=== PATIENT | female | born 1975 | race Caucasian/White ===

== ENCOUNTER → 2016-07-23 | Outpatient (REF) | payer OTHER ==
[~2016-07-23] MED LIST: /ONDA4TA OR; CIPR500T4 OR; FLAG500T OR; No Historical Meds; VICO5TAB OR
== END ==
LOC: M LAB REF 09:04
PROVIDERS: ATTEND Physician Assistant Medical
DX: J02.9 Acute pharyngitis, unspecified (principal)

== ENCOUNTER 2018-10-08 09:57 | Day surgery (SDC) | payer OTHER ==
[~2018-10-08] VITALS: Ht 170.2 cm; Wt 112.0 kg
[~2018-10-08 09:57] MED LIST changes: -/ONDA4TA OR; +LIDOCAINE 2% INJ 100 MG/5 ML SDV (FOR ANES.) As Ordered ONE; +MIDAZOLAM INJ 2 MG/2 ML VIAL (J2250) As Ordered ONE; +ONDA-1 OR; +ONDANSETRON 4MG/2ML VIAL (J2405) As Ordered ONE; +PROPOFOL 200 MG/20 ML VIAL As Ordered ONE; +dexameTHASONE 4 MG/ML 1ML VIAL (J1100) As Ordered ONE; +fentaNYL 100 MCG/2 ML INJECTION (J3010) As Ordered ONE
[2018-10-08] MEDS ORDERED: LR 1,000 ML IV SCH (11:00)
[2018-10-08] MEDS ORDERED: BUPIVACAINE HCL 0.25% 10 ML VIAL As Ordered ONE (14:01)
[2018-10-08] MEDS ORDERED: LIDOCAINE W/EPINEPHRINE 1% 20ML VIAL As Ordered ONE (14:01)
[2018-10-08] MEDS ORDERED: LIDOCAINE 1% SDV INJ 30 ML VIAL As Ordered ONE (14:01)
[2018-10-08] MEDS ORDERED: BUPIVACAINE HCL 0.25% 30 ML VIAL As Ordered ONE (14:20)
[2018-10-08] MEDS ORDERED: PROPOFOL 200 MG/20 ML VIAL As Ordered ONE (14:42)
[2018-10-08] MEDS ORDERED: NORC1TAB7 PO (15:22)
[2018-10-08 16:15] VITALS: BP 118/66
--- NOTE | 2018-10-20 04:57 | ROOPDOC ---
[facility] Report Of Operation Report of Operation DATE OF PROCEDURE: 10/08/18 PREPROCEDURE DIAGNOSES: Left flank lipoma. POSTPROCEDURE DIAGNOSES: Left flank lipoma. PROCEDURE: Excision of lipoma at the left flank (3 x 3 cm). SURGEON: Charles Warren MD ANESTHESIA: Monitored anesthesia care with IV sedation plus placement of local anesthesia using 1% lidocaine mixed with 1/4% Marcaine. ESTIMATED BLOOD LOSS: Approximately 5 mL. COMPLICATIONS: None. REMARKS: Roughly a 3 x 3 cm well encapsulated lobulated fat tissue was removed PROCEDURE NOTE: 42-year-old female with a long-standing lipoma given her some localized discomfort at the area is brought in today for excision of the lipoma. DESCRIPTION OF PROCEDURE: Patient was brought to the operating room and placed on the procedure table she was positioned right lateral decubitus position with a wedge pillow under back to support her, depression points well padded. SCD boots were placed for the rhythm compression for DVT prophylaxis. This is a clean surgery and no antibiotics were given. She was provided with IV sedation and given oxygen via facemask and monitored throughout the whole procedure. The area around the left flank lipoma was prepped and draped in usual sterile fashion.We paused for a surgical timeout using both pre-incision safety checklist to verify correct patient, procedure site and additional clinical information prior to beginning the procedure The lipoma can be seen and palpated its within her tattoo. I chose an area in the middle of the soft tissue nodularity close to the lines of her tattoo and created a transverse skin incision with a 15 blade scalpel. This was slowly deepened through to the superficial subcutaneous tissue until the lipoma was encountered. The lipoma was then circumferentially dissected with both blunt and sharp dissection getting around the lipoma circumferentially and along its posterior attachments. This is well encapsulated and freed from surrounding adipose tissue and likewise along the lumbodorsal fascia. After freeing this up circumferentially as able to extract this hole. The cavity was inspected for bleeding or any remnants of the lipoma. Once satisfied the incision was then closed in layers using 3-0 Vicryl at the subcutaneous space and at the dermis. A running suture of 4-0 Monocryl was placed a particularly to close the skin. Steri-Strips and gauze dressings covered with Tegaderm was then used to cover the incision. Patient tolerated the procedure well and she was returned to the stretcher and brought to the recovery room stable after she woke up. CHARLES WARREN MD October 20, 2018 04:57
== END 2018-10-08 16:22 | disposition home or self-care (01) ==
LOC: M SDC 09:57
PROVIDERS: ATTEND Surgery
DX: D17.1 Benign lipomatous neoplasm of skin and subcutaneous tissue of trunk (principal); K21.9 Gastro-esophageal reflux disease without esophagitis; R06.83 Snoring; E66.9 Obesity, unspecified; Z68.39 Body mass index [BMI] 39.0-39.9, adult; Z91.09 Other allergy status, other than to drugs and biological substances; Z98.51 Tubal ligation status; Z72.0 Tobacco use
CPT/HCPCS: 21931; 88304; J1100; J2250; J2405; J3010

== ENCOUNTER 2020-08-07 13:22 | Emergency (ER) | payer OTHER ==
[~2020-08-07] VITALS: Ht 167.6 cm; Wt 120.5 kg
[~2020-08-07 13:22] MED LIST changes: -LIDOCAINE 2% INJ 100 MG/5 ML SDV (FOR ANES.) As Ordered ONE; -MIDAZOLAM INJ 2 MG/2 ML VIAL (J2250) As Ordered ONE; +NORC1TAB7 PO; -ONDANSETRON 4MG/2ML VIAL (J2405) As Ordered ONE; -PROPOFOL 200 MG/20 ML VIAL As Ordered ONE; -dexameTHASONE 4 MG/ML 1ML VIAL (J1100) As Ordered ONE; -fentaNYL 100 MCG/2 ML INJECTION (J3010) As Ordered ONE
[2020-08-07] MEDS ORDERED: FLUT1INH3 (14:00)
[2020-08-07] MEDS ORDERED: GI COCKTAIL 50ML BTL(HYOSCYAMINE/MAALOX/LIDOCAINE VISCOUS)(1:3:1) PO ONE (14:00)
[2020-08-07 14:05] LABS: BASO # 0.1 10^3/uL (0.0-0.2); BASO % 0.4 % (0.0-1.0); EOS # 0.1 10^3/uL (0.0-0.5); EOS % 0.8 % (0.0-3.0); HEMATOCRIT 46.9 % (36.0-47.0); LYMPH # 3.3 10^3/uL (1.5-5.0); LYMPH % 23.5 % (24.0-44.0); MEAN CORPUSCULAR HEMOGLOBIN 30.2 pg (27.0-33.0); MEAN CORPUSCULAR HGB CONC 34.1 g/dl (32.0-36.5); MEAN CORPUSCULAR VOLUME 88.5 fl (80.0-96.0); MONO # 0.6 10^3/uL (0.0-0.8); MONO % 4.2 % (2.0-8.0); NEUTROPHILS # 9.8 10^3/uL (1.5-8.5); NEUTROPHILS % 70.7 % (36.0-66.0); PLATELET COUNT, AUTOMATED 361 10^3/uL (150-450); WHITE BLOOD COUNT 13.8 10^3/uL (4.0-10.0)
--- NOTE | 2020-08-07 14:17 | REP ---
INDICATION: CHEST PAIN COMPARISON: 11/06/2013 TECHNIQUE: Portable AP view of the chest FINDINGS: The mediastinum and cardiac silhouette are stable and within normal limits for portable technique. The lung hernandez are clear without acute consolidation, effusion, or pneumothorax. Skeletal structures are intact. IMPRESSION: No acute cardiopulmonary process appreciated. <Electronically signed by Evert Bob > 08/07/20 [id number]
[2020-08-07 15:41] LABS: CK-MB VALUE MASS < 1.0 NG/ML (<3.6); CPK CREATINE PHOSPHOKINASE 110 U/L (26-192); INR 0.92; MB/CK RELATIVE INDEX 0.91 (< OR =4); PARTIAL THROMBOPLASTIN TIME 33.7 SECONDS (24.2-38.5); PROTHROMBIN TIME 12.6 SECONDS (12.5-14.3); TROPONIN I < 0.02 NG/ML (< 0.10)
[2020-08-07 16:10] LABS: ALBUMIN 3.8 GM/DL (3.2-5.2); ALT/SGPT 26 U/L (12-78); BILIRUBIN,DIRECT 0.2 MG/DL (0.0-0.2); BILIRUBIN,TOTAL 0.6 MG/DL (0.2-1.0); BLOOD UREA NITROGEN 9 MG/DL (7-18); CALCIUM LEVEL 9.2 MG/DL (8.5-10.1); CARBON DIOXIDE LEVEL 25 MEQ/L (21-32); CHLORIDE LEVEL 105 MEQ/L (98-107); CREATININE FOR GFR 0.64 MG/DL (0.55-1.30); GLOMERULAR FILTRATION RATE > 60.0 (>58); GLUCOSE, FASTING 98 MG/DL (70-100); LIPASE 96 U/L (73-393); POTASSIUM SERUM 3.9 MEQ/L (3.5-5.1); SODIUM LEVEL 137 MEQ/L (136-145); TOTAL PROTEIN 7.1 GM/DL (6.4-8.2)
[2020-08-07 16:54] LABS: CK-MB VALUE MASS < 1.0 NG/ML (<3.6); CPK CREATINE PHOSPHOKINASE 116 U/L (26-192); MB/CK RELATIVE INDEX 0.86 (< OR =4); TROPONIN I < 0.02 NG/ML (< 0.10)
[2020-08-07 17:21] VITALS: BP 132/92
[2020-08-07] MEDS ORDERED: SUCR1TA PO (17:30)
[2020-08-07] MEDS ORDERED: OMEP-218 PO (17:30)
--- NOTE | 2020-08-07 19:45 | ECGEPIP ---
[facility] - ED Test Date: 2020-08-07 Pat Name: HERLINDA RENTERIA Department: Room: - Gender: Female [employer] Monitor: ELLIS : 1975 Requested By: RUSS Parks Order Number: [id number] Reading MD: Ayaz Faye Measurements Intervals [place] Rate: 89 P: 46 [place]: 154 QRS: 9 QRSD: 72 T: 40 QT: 356 QTc: 433 Interpretive Statements Normal sinus rhythm NO PRIORS FOR COMPARISON Electronically Signed on 08-07-2020 19:44:58 EDT by Ayaz Faye
--- NOTE | 2020-08-07 20:04 | ECGEPIP ---
[facility] - ED Test Date: 2020-08-07 Pat Name: HERLINDA RENTERIA Department: Room: - Gender: Female Car [employer]agger: : 1975 Requested By: RUSS Parks Order Number: [id number] Reading MD: Ayaz Faey Measurements Intervals [place] Rate: 62 P: 38 [place]: 162 QRS: 11 QRSD: 78 T: 34 QT: 410 QTc: 416 Interpretive Statements Normal sinus rhythm POOR R WAVE PROGRESSION SIMILAR TO PRIOR ON SAME DATE Electronically Signed on 08-07-2020 20:04:04 EDT by Ayaz Faye
== END 2020-08-07 17:46 | disposition home or self-care (01) ==
LOC: M ED 13:22
DX: K21.9 Gastro-esophageal reflux disease without esophagitis (principal); Z91.018 Allergy to other foods; Z79.899 Other long term (current) drug therapy; F17.210 Nicotine dependence, cigarettes, uncomplicated

== ENCOUNTER → 2020-12-03 | Outpatient (CLI) | payer OTHER ==
[~2020-12-03] MED LIST changes: +FLUT1INH3; +OMEP-218 PO; +SUCR1TA PO
--- NOTE | 2020-12-04 14:20 | SLEEPHOME ---
DATE: 12/03/2020 DIAGNOSTIC HOME SLEEP TEST ORDERED BY: NIGEL Parikh Diagnostic home sleep testing was performed due to concern for the obstructive sleep apnea syndrome in this patient with a history of excessive somnolence and nonrestorative sleep. For testing, a nocturnal T3 respiratory monitoring device was used. Continuous record was made of pulse, oxygen saturation, air flow, chest and abdominal strain, and body position. Nine hours and 39 minutes of data were reviewed. There were 7 hours and 51 minutes marked as time in bed. During the interval marked time in bed, there were 64 respiratory events identified of 10 seconds in duration or greater for a respiratory event index of 8.1. The events were primarily obstructive. Baseline pulse rate was 70. Pulse rate ranged 59 to 96. Baseline saturation was 94%. Saturations fell to 86%. Testing was performed in both the supine and nonsupine positions. IMPRESSION: Abnormal home sleep testing with repetitive respiratory events and oxygen desaturations to 86% with a respiratory event index of 8.1 is consistent with the obstructive sleep apnea syndrome. RECOMMENDATION: The patient should be encouraged to undergo a formal sleep evaluation. cc: Michelle Mcgee
== END ==
LOC: M SLEEP HO 13:20
PROVIDERS: ATTEND Nurse Practitioner Family
DX: G47.33 Obstructive sleep apnea (adult) (pediatric) (principal)

== ENCOUNTER → 2021-08-14 | Outpatient (REF) | payer OTHER ==
[~2021-08-14] MED LIST changes: +OMEP-173 PO; -OMEP-218 PO
== END ==
LOC: M SFHCWAGY 17:06
PROVIDERS: ATTEND Obstetrics & Gynecology
DX: N93.9 Abnormal uterine and vaginal bleeding, unspecified (principal)

== ENCOUNTER → 2021-08-15 | Outpatient (CLI) | payer OTHER | LOC: M WHC 11:26 | PROVIDERS: ATTEND Obstetrics & Gynecology | DX: N93.9 Abnormal uterine and vaginal bleeding, unspecified (principal) ==

== ENCOUNTER → 2021-08-29 | Outpatient (REF) | payer OTHER | LOC: M LAB REF 11:56 | PROVIDERS: ATTEND Physician Assistant | DX: R05.9 Cough, unspecified (principal) ==

== ENCOUNTER → 2021-10-17 | Outpatient (CLI) | payer OTHER ==
[~2021-10-17] MED LIST changes: -FLUT1INH3; +FLUT1INH3 INH
== END ==
LOC: M EKG 15:32
PROVIDERS: ATTEND Anesthesiology
DX: Z01.818 Encounter for other preprocedural examination (principal); Z11.52 Encounter for screening for COVID-19

== ENCOUNTER 2021-10-23 05:58 | Day surgery (SDC) | payer OTHER ==
[~2021-10-23] VITALS: Ht 167.6 cm; Wt 119.7 kg
[2021-10-23] MEDS ORDERED: ceFAZolin SOD 1 GM in D5W MINI-BAG PLUS 50 ML IV ONE (06:00)
[2021-10-23] MEDS ORDERED: ceFAZolin SOD 2 GM in IV 1 EA IV ONE (06:00)
[2021-10-23] MEDS ORDERED: LR 1,000 ML IV SCH ×3 (06:10→09:30)
[2021-10-23] MEDS ORDERED: INSULIN LISPRO (NovoLOG) PER UNIT SC PRN (06:10)
[2021-10-23 06:34] LABS: HEMATOCRIT 43.2 % (36.0-47.0); HEMOGLOBIN 14.4 g/dl (12.0-15.5); MEAN CORPUSCULAR HEMOGLOBIN 30.3 pg (27.0-33.0); MEAN CORPUSCULAR HGB CONC 33.3 g/dl (32.0-36.5); MEAN CORPUSCULAR VOLUME 90.9 fl (80.0-96.0); PLATELET COUNT, AUTOMATED 284 10^3/uL (150-450); RED BLOOD COUNT 4.75 10^6/uL (4.00-5.40); WHITE BLOOD COUNT 8.3 10^3/uL (4.0-10.0)
[2021-10-23 06:45] LABS: HCG, SERUM QUALITATIVE NEGATIVE (NEGATIVE)
[2021-10-23] MEDS ORDERED: MIDAZOLAM INJ 2MG/2ML VIAL (J2250 PER 1MG) As Ordered ONE (07:05)
[2021-10-23] MEDS ORDERED: ROCURONIUM BROMIDE 50 MG/5 ML VIAL As Ordered ONE ×2 (07:05→08:21)
[2021-10-23] MEDS ORDERED: ONDANSETRON 4MG/2ML VIAL As Ordered ONE (07:05)
[2021-10-23] MEDS ORDERED: fentaNYL 100 MCG/2 ML INJECTION As Ordered ONE ×2 (07:05→08:21)
[2021-10-23] MEDS ORDERED: LIDOCAINE 2% 100MG/5ML SDV (FOR ANES.) As Ordered ONE (07:05)
[2021-10-23] MEDS ORDERED: propofoL 200 MG/20 ML VIAL As Ordered ONE (07:05)
[2021-10-23] MEDS ORDERED: dexameTHASONE 4 MG/ML 1ML VIAL (J1100 PER 1MG) As Ordered ONE (07:05)
[2021-10-23] MEDS ORDERED: METHYLENE BLUE 0.5% (5MG/ML) 10 ML AMP (PROVAYBLUE) As Ordered ONE (07:12)
[2021-10-23] MEDS ORDERED: BUPIVACAINE HCL 0.25% 30ML VIAL As Ordered ONE (07:12)
[2021-10-23] MEDS ORDERED: LACRILUBE (AKWA TEARS) OPHTH OINT 3.5 GM As Ordered ONE (07:14)
[2021-10-23] MEDS ORDERED: fentaNYL 100 MCG/2 ML INJECTION IV PRN (07:45)
[2021-10-23] MEDS ORDERED: ONDANSETRON 4MG/2ML VIAL IV PRN ×2 (07:45→09:30)
[2021-10-23] MEDS ORDERED: ACETAMINOPHEN 1000MG 100ML IV BTL (OFIRMEV) (J0131 PER 10MG) As Ordered ONE (07:59)
[2021-10-23] MEDS ORDERED: SUGAMMADEX SODIUM 500 MG/5 ML VIAL (BRIDION) As Ordered ONE (08:33)
[2021-10-23] MEDS ORDERED: OMEPRAZOLE 20MG CAP PO SCH (09:00)
[2021-10-23] MEDS ORDERED: METOCLOPRAMIDE INJ 10MG/2ML VIAL (J2765 PER 1) As Ordered ONE (09:12)
[2021-10-23] MEDS ORDERED: KETOROLAC 60MG 2ML VIAL As Ordered ONE (09:14)
[2021-10-23] MEDS ORDERED: MORPHINE 4 MG/ML 1ML VIAL/SYRINGE IV PRN (09:30)
[2021-10-23] MEDS ORDERED: PERCOCET 5MG/325MG TAB PO PRN ×2 (09:30)
[2021-10-23] MEDS ORDERED: PERCOCET PO (09:37)
[2021-10-23] MEDS ORDERED: COLA100C5 PO (09:37)
[2021-10-23] MEDS ORDERED: IBUP80TA PO (09:37)
[2021-10-23] MEDS: oxyCODONE 5MG TAB PO PRN ×2 (09:59→10:33)
[2021-10-23 11:14] VITALS: BP 125/71
[2021-10-23 11:44] VITALS: BP 115/60
[2021-10-23 12:14] VITALS: BP 115/68
[2021-10-23 13:14] VITALS: BP 113/64
[2021-10-23 14:14] VITALS: BP 123/70
[2021-10-23] MEDS ORDERED: KETOROLAC 30 MG/ML 1ML VIAL IV SCH (15:00)
[2021-10-23] MEDS ORDERED: DOCUSATE SODIUM 100MG CAPSULE PO SCH (21:00)
[2021-10-24] MEDS ORDERED: IBUPROFEN 800 MG TAB PO SCH (11:00)
== END 2021-10-23 16:30 | disposition home or self-care (01) ==
LOC: M SDC 05:58 → M OBS 11:00 → M SDC 16:30
PROVIDERS: ATTEND Obstetrics & Gynecology
DX: D25.9 Leiomyoma of uterus, unspecified (principal); N93.9 Abnormal uterine and vaginal bleeding, unspecified; N80.0 Endometriosis of uterus; N83.8 Other noninflammatory disorders of ovary, fallopian tube and broad ligament; K21.9 Gastro-esophageal reflux disease without esophagitis; J45.909 Unspecified asthma, uncomplicated; Z79.899 Other long term (current) drug therapy; G47.33 Obstructive sleep apnea (adult) (pediatric); Z79.51 Long term (current) use of inhaled steroids; F17.210 Nicotine dependence, cigarettes, uncomplicated
CPT/HCPCS: 36415; 58571; 84703; 85027; 86850; 86900; 86901; 88307; J0131; J0690; J1100; J1885; J2250; J2405; J2765; J3010; Q9968; S2900